=== PATIENT | female | born 1935 | race Caucasian/White ===

== ENCOUNTER 2017-03-28 06:11 | Day surgery (SDC) | payer MEDICARE ==
[~2017-03-28] VITALS: Ht 160 cm; Wt 75.1 kg
[~2017-03-28 06:11] MED LIST: ACET1TAB64 PO; ASPI-496 PO; BIOT1CAP3 PO; CALC500T93 PO; DICL50TA4 PO; DOXY25TA45 PO; FENO160T PO; GLUC500T11 PO; INDA2.5T PO; LEVO88TA4 PO; METF500T4 PO; MULT1TAB60 PO; POTA99TA14 PO; RAMI10CA PO; RANI75TA12 PO; SENN-123 PO; SIMV20TA3 PO; VITA100C4 PO
[2017-03-28] MEDS ORDERED: LACTATED RINGERS 1,000 ML IV SCH (06:50)
[2017-03-28 06:52] VITALS: BP 120/86
[2017-03-28] MEDS ORDERED: LIDOCAINE 1%, 2ML SQ PRN (07:00)
[2017-03-28 07:40] LABS: ASPARTATE AMINO TRANSFERASE 15 U/L (15-37); BLOOD UREA NITROGEN 23 mg/dL (7-18)
[2017-03-28] MEDS ORDERED: PROPOFOL 10 MG/ML, 20ML ONE (08:58)
[2017-03-28] MEDS ORDERED: SUCCINYLCHOLINE 20 MG/ML, 10ML ONE (08:58)
[2017-03-28] MEDS ORDERED: ROCURONIUM 10 MG/ML,10ML ONE (08:58)
[2017-03-28] MEDS ORDERED: FENTANYL PF 100 MCG/2ML ONE (09:02)
[2017-03-28] MEDS ORDERED: MIDAZOLAM 1 MG/ML, 2ML ONE ×2 (09:02→10:41)
[2017-03-28] MEDS ORDERED: CEFAZOLIN 1,000 MG ONE (09:04)
[2017-03-28] MEDS ORDERED: VASOPRESSIN 20 UNIT/ML, 1ML ONE (09:24)
[2017-03-28] MEDS ORDERED: ONDANSETRON 2MG/ML, 2ML ONE (09:24)
[2017-03-28] MEDS ORDERED: DEXAMETHASONE 4 MG/ML, 1ML ONE (09:24)
[2017-03-28] MEDS ORDERED: EPINEPHRINE 1 MG/ML, 1ML ONE (09:28)
[2017-03-28] MEDS ORDERED: ONDANSETRON 2MG/ML, 2ML IVPush PRN (09:30)
[2017-03-28] MEDS ORDERED: METOPROLOL 1 MG/ML, 5ML IV PRN (09:30)
[2017-03-28] MEDS ORDERED: EPHEDRINE 50 MG/ML, 1ML IVPush PRN (09:30)
[2017-03-28] MEDS ORDERED: LABETALOL 5MG/ML, 20ML IV PRN (09:30)
[2017-03-28] MEDS ORDERED: ACETAMINOPHEN 325 MG TABLET PO PRN (09:30)
[2017-03-28] MEDS ORDERED: FENTANYL PF 100 MCG/2ML IV PRN (09:30)
[2017-03-28] MEDS ORDERED: PROMETHAZINE 25 MG/ML, 1ML IV PRN (09:30)
[2017-03-28] MEDS ORDERED: METOCLOPRAMIDE 5 MG/ML, 2ML IV PRN (09:30)
[2017-03-28] MEDS ORDERED: MIDAZOLAM 1 MG/ML, 2ML IV PRN (09:30)
[2017-03-28] MEDS ORDERED: hydrALAzine 20 MG/ML, 1ML IV PRN (09:30)
[2017-03-28] MEDS ORDERED: HYDROmorphone 1 MG/ML, 1ML IV PRN (09:30)
[2017-03-28] MEDS ORDERED: ALBUTEROL SULFATE 2.5 MG/3 ML NPPB PRN (09:30)
[2017-03-28] MEDS ORDERED: HYDROcodone/APAP 7.5-325MG/15ML UDC PO PRN (09:30)
[2017-03-28] MEDS ORDERED: NEOSTIGMINE 1 MG/ML, 10ML ONE (09:54)
[2017-03-28] MEDS ORDERED: GLYCOPYRROLATE 0.2MG/1ML, 5ML ONE (09:54)
== END 2017-03-28 18:45 ==
LOC: OUT 06:11
PROVIDERS: ATTEND Internal Medicine
DX: C25.0 Malignant neoplasm of head of pancreas (principal); K86.2 Cyst of pancreas; E11.9 Type 2 diabetes mellitus without complications; E03.9 Hypothyroidism, unspecified; I10 Essential (primary) hypertension; Z87.39 Personal history of other diseases of the musculoskeletal system and connective tissue; Z98.890 Other specified postprocedural states
CPT/HCPCS: 36415; 43239; 43242; 80053; 88172; 88173; 88177; 88307; 93005; J0171; J0330; J0690; J1100; J2250; J2405; J2704; J2710; J3010; J3490; J7120